=== PATIENT | male | born 1955 | race Caucasian/White ===

== ENCOUNTER 2017-10-18 11:33 | Emergency (ER) | payer BC, OTHER ==
[~2017-10-18] VITALS: Ht 180.3 cm; Wt 97.0 kg
[~2017-10-18 11:33] MED LIST: TRAM50 PO; Z.0.NO CURRENT MEDS
[2017-10-18 11:44] VITALS: BP 139/80; PULSE 74; RESP 16; TEMP 97.9; O2SAT 97
[2017-10-18] MEDS ORDERED: ERYTOIN10 EACH EYE (12:51)
--- NOTE | 2017-10-18 12:51 | PD ---
HPI Chief Complaint: Eye Problems/Injury Time Seen by Provider: 12:32 Travel History International Travel<30 days: No Contact w/Intl Traveler<30days: No Traveled to known affect area: No History of Present Illness HPI 62-year-old male here with bilateral eye irritation since 9 AM. He denies trauma. Does not recall specific event where any type of chemical irritant made contact with the eyes. He does apply sunscreen to his face every morning and believes this may have caused the discomfort. Denies any visual changes. Symptom severity is mild to moderate. Denies pain but reports "irritation" described as mild burning. He irrigated the eyes himself today prior to arrival and reports symptom improvement. PFSH Past Medical History Hx Anticoagulant Therapy: Yes Cancer: No High Cholesterol: Yes Diabetes: No GERD: Yes Hepatitis: No Hiatal Hernia: Yes (DBL) Medical other: Yes (ACTINIC KERATOSIS;BPH;ESOPHAGEAL REFLUX;HYPERLIPIDEMIA,IBS) Thyroid Disease: No Tetanus Vaccination: > 5 Years Past Surgical History Abdominal Surgery: Yes (BILAT ING. HERNIA REPAIR) Cardiac Surgery: No Ear Surgery: No Endocrine Surgery: No Eye Surgery: Yes (LASIK SURGERY BOTH EYES) Genitourinary Surgery: No Gynecologic Surgery: No Oral Surgery: Yes (ALL 4 WISDOM TEETH REMOVED; POLYPS REMOVED VOCAL CORDS 30 YEARS AGO) Pacemaker: No Thoracic Surgery: No Other Surgery: Yes Social History Alcohol Use: Yes (GLASS OF WINE 1 X MONTH) Tobacco Use: Yes (CIGAR SOMETIMES) Substance Use: No Allergies-Medications (Allergen,Severity, Reaction): Coded Allergies: penicillin G (Unverified Allergy, Unknown, Hives,SOB, 10/18/17) Reported Meds & Prescriptions Reported Meds & Active Scripts Active Erythromycin Opth Oint 5 Mg/Gm Oint 1 Applic EACH EYE BID Reported Hydrocodone-Acetaminophen 10-300 Tab 1 Tab PO HS PRN Fenofibrate 145 Mg Tab 145 Mg PO DAILY Review of Systems Except as stated in HPI: all other systems reviewed are Neg General / Constitutional: No: Fever Eyes: Positive: Redness, No: Visual changes HENT: No: Headaches Cardiovascular: No: Chest Pain or Discomfort Respiratory: No: Shortness of Breath Gastrointestinal: No: Abdominal Pain Genitourinary: No: Dysuria Physical Exam Narrative GENERAL: Alert and well-appearing 62-year-old male SKIN: Warm and dry. HEAD: Normocephalic. EYES: No swelling of the lids. No injection or drainage. Pupils equal, round, reactive to light. EOMs intact. Corneas are clear. Visual acuity L: 20/30, R: 20/30, B:20/30. No fluorescein dye uptake NECK: Supple, trachea midline. CARDIOVASCULAR: Regular rate and rhythm without murmurs, gallops, or rubs. RESPIRATORY: Breath sounds equal bilaterally. No accessory muscle use. GASTROINTESTINAL: Abdomen soft, non-tender, nondistended. MUSCULOSKELETAL: No cyanosis, or edema. BACK: Nontender without obvious deformity. No CVA tenderness. Data Data Last Documented VS Vital Signs Date Time Temp Pulse Resp B/P (MAP) Pulse Ox O2 Delivery O2 Flow Rate FiO2 10/18/17 11:44 97.9 74 16 139/80 (99) 97 MDM Medical Decision Making Medical Screen Exam Complete: Yes Emergency Medical Condition: Yes Differential Diagnosis Chemical exposure to the eye, chemical burn, corneal abrasion, corneal ulcer Narrative Course 62-year-old male here with bilateral eye irritation since 9 AM. No chemical exposure or trauma to the eyes. He does apply sunscreen daily and this may be the cause. He has a normal eye exam. No fluorescein dye uptake. Symptom improvement after proparacaine drops instilled. He has normal visual acuity. Normal pH of the eye. He was instructed to discontinue the use of sunscreen. Antibiotic ointment will be prescribed. He is to follow-up with ophthalmology. Diagnosis Primary Impression: Chemical exposure of eye Referrals: Montse Reid MD[facility] and base assembler Additional Instructions: Discontinue the use of sunscreen as this is the possible offending agent. Antibiotic ointment as directed. Follow-up the residential instructor Scripts Erythromycin Opth Oint (Erythromycin Opth Oint) 5 Mg/Gm Oint 1 APPLIC EACH EYE BID for Infection, #1 TUBE 0 Refills Prov: Lucero Yarbrough 10/18/17 Disposition: 01 DISCHARGE HOME Condition: Stable Lucero Yarbrough October 18, 2017 12:51
[2017-10-18] MEDS ORDERED: FENO145T2 PO (12:55)
[2017-10-18] MEDS ORDERED: HYDR-2374 PO (12:55)
== END 2017-10-18 13:01 | disposition home or self-care (01) ==
LOC: PHEFT 11:33
DX: H57.8 Other specified disorders of eye and adnexa (principal); Z77.098 Contact with and (suspected) exposure to other hazardous, chiefly nonmedicinal, chemicals; E78.5 Hyperlipidemia, unspecified; K21.9 Gastro-esophageal reflux disease without esophagitis; K58.9 Irritable bowel syndrome, unspecified; N40.0 Benign prostatic hyperplasia without lower urinary tract symptoms; Z72.0 Tobacco use
CPT/HCPCS: 99283